=== PATIENT | male | born 1955 | race Caucasian/White ===

== ENCOUNTER 2016-11-30 11:27 | Emergency (ER) | payer BC | END 2016-11-30 12:39 | disposition home or self-care (01) | LOC: ED 11:27 | DX: S70.11XA Contusion of right thigh, initial encounter (principal); E11.21 Type 2 diabetes mellitus with diabetic nephropathy; X58.XXXA Exposure to other specified factors, initial encounter; Y92.69 Other specified industrial and construction area as the place of occurrence of the external cause; Y99.0 Civilian activity done for income or pay ==